=== PATIENT | female | born 1935 | race Asian ===

== ENCOUNTER 2024-09-30 16:46 | Emergency (ER) | payer MEDICARE, OTHER, SELFPAY ==
[2024-09-30 16:48] VITALS: BP 144/73
[2024-09-30 17:20] LABS: Hematocrit 31.6 % (37.0-47.0); Hemoglobin 11.3 g/dL (12.0-16.0); Mean Corp Hgb Conc. 35.8 g/dL (33.0-37.0); Mean Corpuscular Volume 82.7 fL (81.0-99.0); Nucleated Red Blood Cells % 0 %; Platelet Count 224 10^3/uL (130-400); Red Cell Dist. Width 13.2 % (11.5-14.5)
[2024-09-30 17:25] LABS: APTT 30.4 Sec (23.4-35.0); INR 0.90; PT 12.6 Sec (11.4-14.6)
[2024-09-30 17:33] LABS: ALT (SGPT) 15 U/L (0-35); AST (SGOT) 25 U/L (14-36); Albumin 4.7 g/dl (3.5-5.0); Alkaline Phosphatase 42 U/L (38-126); Blood Urea Nitrogen 46 mg/dl (7-17); Calcium 9.2 mg/dl (8.4-10.2); Carbon Dioxide 24 mmol/L (22-30); Chloride 94 mmol/L (98-107); Glucose 126 mg/dl (70-99); Potassium 4.0 mmol/L (3.5-5.1); Sodium 128 mmol/L (135-145); Total Protein 7.8 g/dl (6.3-8.2); eGFR 54.53
[2024-09-30 17:40] LABS: Troponin I < 0.012 ng/ml
== END 2024-09-30 20:29 ==
LOC: EMR 16:46
PROVIDERS: Emergency Medicine
DX: K59.00 Constipation, unspecified (principal); R11.2 Nausea with vomiting, unspecified; M54.50 Low back pain, unspecified; F03.90 Unspecified dementia, unspecified severity, without behavioral disturbance, psychotic disturbance, mood disturbance, and anxiety
CPT/HCPCS: 74022; 80053; 84484; 85025; 85610; 85730; 93005